=== PATIENT | male | born 1985 | race African-American/Black ===

== ENCOUNTER 2019-03-15 09:49 | Emergency (ER) | payer SELFPAY ==
[~2019-03-15] VITALS: Ht 177.8 cm; Wt 95.0 kg
[2019-03-15] MEDS ORDERED: IBUPROFEN 400 MG TABLET. PO ONE (10:15)
[2019-03-15 10:18] VITALS: BP 142/99
[2019-03-15] MEDS ORDERED: AZIT250T PO (10:41)
[2019-03-15] MEDS ORDERED: HYDR-3164 PO (10:41)
--- NOTE | 2019-03-15 10:41 | PHYS DOC ---
Past Medical History Past Medical History: No Pertinent History Past Surgical History: No Surgical History Alcohol Use: Heavy Drug Use: Marijuana Adult General Chief Complaint Chief Complaint: SORE THROAT HPI HPI Patient is a 33 year old male who presents with complaining of sore throat. Patient complaining of constant sore throat for the last 5 days with white spots in his throat and headache without fever, sick contacts, cough and congestion, nausea and vomiting. Patient states he thinks he had strep throat. Review of Systems Review of Systems Constitutional: Denies fever or chills [] Eyes: Denies change in visual acuity, redness, or eye pain [] HENT: Denies nasal congestion, reports sore throat [] Respiratory: Denies cough or shortness of breath [] Cardiovascular: No additional information not addressed in HPI [] GI: Denies abdominal pain, nausea, vomiting, bloody stools or diarrhea [] : Denies dysuria or hematuria [] Musculoskeletal: Denies back pain or joint pain [] Integument: Denies rash or skin lesions [] Neurologic: Reports headache, denies focal weakness or sensory changes [] Endocrine: Denies polyuria or polydipsia [] All other systems were reviewed and found to be within normal limits, except as documented in this note. Current Medications Current Medications Current Medications Medications (Trade) Dose Ordered Sig/Steve Start Time Stop Time Status Last Admin Dose Admin Ibuprofen (Motrin) 800 mg 1X ONCE 03/15/19 10:15 03/15/19 10:22 DC 03/15/19 10:28 800 MG Allergies Allergies Allergies Coded Allergies Type Severity Reaction Last Updated Verified Penicillins Allergy Unknown 03/15/19 Yes Physical Exam Physical Exam Constitutional: Well developed, well nourished, mild distress, non-toxic appearance. [] HENT: Normocephalic, atraumatic, bilateral external ears normal, oropharynx moist, bilateral tonsillar enlargement with exudates, nose normal. [] Eyes: PERRLA, EOMI, conjunctiva normal, no discharge. [] Neck: Normal range of motion, no tenderness, supple, no stridor, bilateral cervical lymphadenopathy. [] Cardiovascular:Heart rate regular rhythm, no murmur [] Lungs & Thorax: Bilateral breath sounds clear to auscultation [] Skin: Warm, dry, no erythema, no rash. [] Extremities: No tenderness, no cyanosis, no clubbing, ROM intact, no edema. [] Neurologic: Alert and oriented X 3 Psychologic: Affect normal, judgement normal, mood normal. [] Current Patient Data Vital Signs Vital Signs Date Time Temp Pulse Resp B/P (MAP) Pulse Ox O2 Delivery O2 Flow Rate FiO2 03/15/19 10:18 98.6 64 16 142/99 (113) 98 Room Air 98.6 EKG EKG [] Radiology/Procedures Radiology/Procedures [] Course & Med Decision Making Course & Med Decision Making Pertinent Labs reviewed. (See chart for details) Evaluation of patient in ER showed 33-year-old male patient with complaining of sore throat for 5 days. Patient had enlarged tonsils with exudate and cervical lymphadenopathy without fever in ER. Strep test was positive. Patient is allergic to penicillin. Plan discharge patient home to diagnose of a strep pharyngitis and prescription of Zithromax and Naper. Dragon Disclaimer Dragon Disclaimer This electronic medical record was generated, in whole or in part, using a voice recognition dictation system. Departure Departure Impression: Primary Impression: Acute streptococcal pharyngitis Disposition: HOME, SELF-CARE (at 1039) Condition: IMPROVED Referrals: NON,STAFF (PCP) Patient Instructions: Strep Throat, Group A Streptococcus Additional Instructions: Drink plenty of liquids Follow-up with your primary care physician in 3-5 days Return to ER if not getting better Scripts Azithromycin (ZITHROMAX) 250 Mg Tablet 1 PKG PO UD for infection, #1 PKG Prov: KISHORE BAUM MD 03/15/19 Hydrocodone/Apap 5-325 (NORCO 5-325 TABLET) 1 Each Tablet 1 TAB PO PRN Q6HRS PRN for PAIN, #12 TAB 0 Refills Prov: KISHORE BAUM MD 03/15/19 KISHORE BAUM MD Mar 15, 2019 10:41
== END 2019-03-15 10:50 | disposition home or self-care (01) ==
LOC: ER 09:49
DX: J02.0 Streptococcal pharyngitis (principal); B95.5 Unspecified streptococcus as the cause of diseases classified elsewhere; R51 Headache; F10.20 Alcohol dependence, uncomplicated; Y90.9 Presence of alcohol in blood, level not specified; Z88.0 Allergy status to penicillin
CPT/HCPCS: 87880; 99283

== ENCOUNTER 2019-03-20 13:53 | Emergency (ER) | payer SELFPAY ==
[~2019-03-20] VITALS: Ht 177.8 cm; Wt 94.8 kg
[~2019-03-20 13:53] MED LIST: AZIT250T PO; HYDR-3164 PO
--- NOTE | 2019-03-20 14:12 | PHYS DOC ---
Past Medical History Past Medical History: No Pertinent History Past Surgical History: No Surgical History Alcohol Use: Heavy Drug Use: Marijuana Adult General Chief Complaint Chief Complaint: SORE THROAT HPI HPI Patient is a 33 year old male presents to the ED complaining of sore throat �1 week. Patient states that he just finished a Z-Daren because he was diagnosed with strep throat 5 days ago. States he is still having a sore throat. Describes the pain as sharp. Rates the pain as 6 out of 10. Patient is allergic to penicillin. Associated symptoms include subjective fever. Denies cough, chest pain, rash, consider colitis, abdominal pain, nausea/vomiting, dizziness, weakness or neck pain. Review of Systems Review of Systems Constitutional: Complains of subjective fever. Denies chills [] Eyes: Denies change in visual acuity, redness, or eye pain [] HENT: Complains of sore throat. Denies congestion.[] Respiratory: Denies cough or shortness of breath [] Cardiovascular: No additional information not addressed in HPI [] GI: Denies abdominal pain, nausea, vomiting, bloody stools or diarrhea [] : Denies dysuria or hematuria [] Musculoskeletal: Denies back pain or joint pain [] Integument: Denies rash or skin lesions [] Neurologic: Denies headache, focal weakness or sensory changes [] All other systems were reviewed and found to be within normal limits, except as documented in this note. Allergies Allergies Allergies Coded Allergies Type Severity Reaction Last Updated Verified Penicillins Allergy Unknown 03/15/19 Yes Physical Exam Physical Exam Constitutional: Well developed, well nourished, no acute distress, non-toxic appearance. [] HENT: Normocephalic, atraumatic, bilateral external ears normal, moderate phary ngeal erythema. no exudate. uvula midline. oropharynx moist, no oral exudates, nose normal. [] Eyes: PERRLA, EOMI, conjunctiva normal, no discharge. [] Neck: Normal range of motion, no tenderness, supple, no stridor. [] Cardiovascular:Heart rate regular rhythm, no murmur [] Lungs & Thorax: Bilateral breath sounds clear to auscultation [] Abdomen: Bowel sounds normal, soft, no tenderness, no masses, no pulsatile masses. [] Skin: Warm, dry, no erythema, no rash. [] Back: No tenderness, no CVA tenderness. [] Extremities: No tenderness, no cyanosis, no clubbing, ROM intact, no edema. [] Neurologic: Alert and oriented X 3, normal motor function, normal sensory function, no focal deficits noted. [] Psychologic: Affect normal, judgement normal, mood normal. [] Current Patient Data Vital Signs Vital Signs Date Time Temp Pulse Resp B/P (MAP) Pulse Ox O2 Delivery O2 Flow Rate FiO2 03/20/19 14:13 98.5 88 20 159/100 (119) 98 Room Air 98.5 EKG EKG [] Radiology/Procedures Radiology/Procedures [] Course & Med Decision Making Course & Med Decision Making Pertinent Labs and Imaging studies reviewed. (See chart for details) [][]Patient had a negative strep test in the ED. Patient will appearing. Discussed symptomatic treatment and [id number] medications. We'll discharge with short course of prednisone and doxycycline. Discussed follow-up with PCP and signs and symptoms to return to the ED. Patient understands and agrees with plan. Dragon Disclaimer Dragon Disclaimer This electronic medical record was generated, in whole or in part, using a voice recognition dictation system. Departure Departure Impression: Primary Impression: Acute pharyngitis Disposition: HOME, SELF-CARE Condition: IMPROVED Referrals: NO PCP (PCP) LAMONT HOLGUIN MD Patient Instructions: Viral and Bacterial Pharyngitis Scripts Prednisone (PREDNISONE) 50 Mg Tablet 1 TAB PO DAILY for 5 Days, #5 TAB Prov: SUSANNA ALVAREZ 03/20/19 Doxycycline Hyclate (DOXYCYCLINE HYCLATE) 100 Mg Tablet. 1 TAB PO BID, #14 TAB Prov: SUSANNA ALVAREZ 03/20/19 SUSANNA ALVAREZ Mar 20, 2019 14:12
[2019-03-20 14:13] VITALS: BP 159/100
[2019-03-20] MEDS ORDERED: DOXY100T9 PO (14:30)
[2019-03-20] MEDS ORDERED: PRED50TA PO (14:30)
== END 2019-03-20 14:38 | disposition home or self-care (01) ==
LOC: ER 13:53
DX: J02.9 Acute pharyngitis, unspecified (principal); F10.20 Alcohol dependence, uncomplicated; Y90.9 Presence of alcohol in blood, level not specified; Z88.0 Allergy status to penicillin
CPT/HCPCS: 87070; 87880; 99283

== ENCOUNTER 2019-04-01 16:04 | Emergency (ER) | payer SELFPAY ==
[~2019-04-01] VITALS: Ht 177.8 cm; Wt 94.8 kg
[~2019-04-01 16:04] MED LIST changes: +DOXY-96 PO; +PRED50TA PO
[2019-04-01] MEDS ORDERED: LIDOCAINE 2% VISCOUS 15 ML SOLUTION. SWSW ONE (16:45)
[2019-04-01] MEDS ORDERED: CLINDAMYCIN 900MG PREMIX 50 ML IV ONE (16:45)
[2019-04-01] MEDS ORDERED: ACETAMINOPHEN 650 MG/20.3 ML SOLUTION. PO ONE (16:45)
[2019-04-01] MEDS ORDERED: IV NORMAL SALINE 1000ML BAG 1,000 ML IV ONE (16:45)
[2019-04-01] MEDS ORDERED: methylPREDNISolone SOD SUCC PF 125 MG/2 ML VIAL. IV ONE (16:45)
[2019-04-01] MEDS ORDERED: MORPHINE SULFATE 10 MG/ML VIAL. IV ONE ×2 (16:45→20:45)
[2019-04-01] MEDS ORDERED: IOHEXOL 300 MG/ML 100ML VIAL. IV ONE (17:00)
[2019-04-01] MEDS ORDERED: CONTRAST GIVEN. MC PRN (17:00)
[2019-04-01] MEDS: IV NORMAL SALINE 1000ML BAG 1,000 ML IV SCH ×2 (17:13→18:08)
[2019-04-01 17:14] LABS: BASO % 0 % (0-3); EOS # 0.1 x10^3/uL (0.0-0.7); EOS % 1 % (0-3); HEMATOCRIT 41.9 % (39.0-53.0); HEMOGLOBIN 14.3 g/dL (13.0-17.5); LYMPH # 1.2 x10^3/uL (1.0-4.8); LYMPH % 11 % (24-48); MEAN CORPUSCULAR HEMOGLOBIN 32 pg (25-35); MEAN CORPUSCULAR HGB CONC 34 g/dL (31-37); MEAN CORPUSCULAR VOLUME 93 fL (79-100); MONO # 0.9 x10^3/uL (0.0-1.1); MONO % 9 % (0-9); NEUT # 8.4 x10^3/uL (1.8-7.7); NEUT % 79 % (31-73); PLATELET COUNT 303 x10^3/uL (140-400); RED CELL DISTRIBUTION WIDTH 14.6 % (11.5-14.5); WHITE BLOOD COUNT 10.6 x10^3/uL (4.0-11.0)
[2019-04-01 17:19] LABS: CALCIUM 9.8 mg/dL (8.5-10.1); CREATININE 0.9 mg/dL (0.7-1.3); GFR 119.1; POTASSIUM 4.4 mmol/L (3.5-5.1)
[2019-04-01 17:26] LABS: ALBUMIN/GLOBULIN RATIO 0.8 (1.0-1.7); TOTAL PROTEIN 8.8 g/dL (6.4-8.2)
--- NOTE | 2019-04-01 18:20 | RAD ---
CT SOFT TISSUE NECK W/CONTRAST DATE: 04/01/2019 4:30 PM INDICATION: Sore throat for 3 weeks TECHNIQUE: Axial computed tomography of the neck with intravenous contrast according to the standard neck protocol. 70 cc of Omnipaque 300 was administered intravenously. One or more of the following dose reduction techniques were utilized: Automated exposure control (AEC), Adjustment of mA and/or kV according to patient size, Use of iterative reconstruction technique such as ASiR, CT scan done according to ALARA and image gently/image wisely COMPARISON: None. FINDINGS: Enlargement of the adenoids and palatine tonsils, greater on the left. 1.0 x 1.2 cm region of ill-defined low attenuation within the left palatine tonsil. Mucosal thickening involving the oropharynx, hypopharynx, and larynx which is more pronounced on the left. Asymmetric effacement of the left piriform sinus. Mild retropharyngeal effusion without enhancement. Moderate narrowing of the oropharynx. Mild narrowing of the hypopharynx. Enlarged bilateral cervical lymph nodes. The parotid, submandibular, and thyroid glands are normal. The muscles of the neck are normal. Vessels of the neck demonstrate normal course, caliber, and enhancement. The visualized aerodigestive tract is normal. The visualized posterior fossa and brain is unremarkable. The visualized orbits are normal. Bilateral maxillary sinus mucus retention cysts. The cervical spine is normal. The visualized lung apices are clear. IMPRESSION: 1. Tonsillar enlargement with mucosal thickening involving the pharynx and larynx. Ill-defined region of hypoattenuation within the left palatine tonsil measuring up to 1.2 cm, which likely represents phlegmon or developing abscess. Mild retropharyngeal effusion, without enhancement. 2. Bilateral cervical lymphadenopathy, likely reactive. Electronically signed by: Rafael Stovall MD (04/01/2019 6:17 PM) [facility]
--- NOTE | 2019-04-01 20:20 | PHYS DOC ---
Past Medical History Past Medical History: No Pertinent History (ABIODUN HERNANDEZ APRN) Past Surgical History: No Surgical History (ABIODUN HERNANDEZ APRN) Alcohol Use: Heavy Drug Use: Marijuana (ABIODUN HERNANDEZ APRN) Adult General Chief Complaint Chief Complaint: SORE THROAT HPI HPI Patient is a 33 year old male patient with no significant medical history who presents to the ED today complaining of a sore throat that began 3 weeks ago. Patient states he was seen in the ED on March 15, 2019 and started on azithromycin which she completed. He states symptoms did not improve, he states he returned on March 20, 2019 and was given doxycycline, he states symptoms have not improved. He states he continues to have pain when swallowing. Patient denies inability to swallow, denies any difficulty breathing. He states he has subjective fevers. (ABIODUN HERNANDEZ APRN) Review of Systems Review of Systems Constitutional: Denies fever or chills [] Eyes: Denies change in visual acuity, redness, or eye pain [] HENT: Reports sore throat. Denies nasal congestion Respiratory: Denies cough or shortness of breath [] Cardiovascular: No additional information not addressed in HPI [] GI: Denies abdominal pain, nausea, vomiting, bloody stools or diarrhea [] : Denies dysuria or hematuria [] Musculoskeletal: Denies back pain or joint pain [] Integument: Denies rash or skin lesions [] Neurologic: Denies headache, focal weakness or sensory changes [] All other systems were reviewed and found to be within normal limits, except as documented in this note. (ABIODUN HERNANDEZ APRN) Current Medications Current Medications Current Medications Medications (Trade) Dose Ordered Sig/Steve Start Time Stop Time Status Last Admin Dose Admin Acetaminophen (Tylenol) 650 mg 1X ONCE 04/01/19 16:45 04/01/19 16:46 DC 04/01/19 17:14 650 MG Clindamycin Phosphate 50 ml @ 100 mls/hr 1X ONCE 04/01/19 16:45 04/01/19 17:14 DC 04/01/19 17:15 100 MLS/HR Info (CONTRAST GIVEN -- Rx MONITORING) 1 each PRN DAILY PRN 04/01/19 17:00 04/03/19 16:59 Iohexol (Omnipaque 300 Mg/ml) 70 ml 1X ONCE 04/01/19 17:00 10/6/19 17:01 DC 04/01/19 17:00 70 ML Lidocaine HCl (Viscous Lidocaine) 15 ml 1X ONCE 04/01/19 16:45 04/01/19 16:46 DC 04/01/19 17:14 15 ML Methylprednisolone Sodium Succinate (SOLU-Medrol 125MG VIAL) 125 mg 1X ONCE 04/01/19 16:45 04/01/19 16:46 DC 04/01/19 17:14 125 MG Morphine Sulfate (Morphine Sulfate) 5 mg 1X ONCE 04/01/19 20:45 04/01/19 20:46 DC 04/01/19 20:39 5 MG Sodium Chloride 1,000 ml @ 2,190 mls/hr Q28M 04/01/19 16:33 04/01/19 17:33 DC 04/01/19 18:08 2,190 MLS/HR (LAMONT HOLMAN DO) Allergies Allergies Allergies Coded Allergies Type Severity Reaction Last Updated Verified Penicillins Allergy Unknown 03/15/19 Yes (LAMONT HOLMAN DO) Physical Exam Physical Exam Constitutional: Well developed, well nourished, no acute distress, non-toxic appearance. [] HENT: Normocephalic, atraumatic, bilateral external ears normal, oropharynx moist, no oral exudates, nose normal. [] +2 anterior cervical adenopathy worse on the left side. +2 tonsils. Airway is open Eyes: PERRLA, EOMI, conjunctiva normal, no discharge. [] Neck: Normal range of motion, no tenderness, supple, no stridor. [] Cardiovascular:Heart rate regular rhythm, no murmur [] Lungs & Thorax: Bilateral breath sounds clear to auscultation [] Abdomen: Bowel sounds normal, soft, no tenderness, no masses, no pulsatile masses. [] Skin: Warm, dry, no erythema, no rash. [] Back: No tenderness, no CVA tenderness. [] Extremities: No tenderness, no cyanosis, no clubbing, ROM intact, no edema. [] Neurologic: Alert and oriented X 3, normal motor function, normal sensory function, no focal deficits noted. [] Psychologic: Affect normal, judgement normal, mood normal. [] (ABIODUN HERNANDEZ APRN) Current Patient Data Vital Signs Vital Signs Date Time Temp Pulse Resp B/P (MAP) Pulse Ox O2 Delivery O2 Flow Rate FiO2 04/01/19 20:39 15 99 Room Air 04/01/19 20:22 62 144/93 (110) 04/01/19 16:15 99.2 99.2 (HOLMANLAMONT DOUGLAS DO) Lab Values Laboratory Tests Test 04/01/19 17:00 White Blood Count 10.6 x10^3/uL (4.0-11.0) Red Blood Count 4.50 x10^6/uL (4.30-5.70) Hemoglobin 14.3 g/dL (13.0-17.5) Hematocrit 41.9 % (39.0-53.0) Mean Corpuscular Volume 93 fL (79-100) Mean Corpuscular Hemoglobin 32 pg (25-35) Mean Corpuscular Hemoglobin Concent 34 g/dL (31-37) Red Cell Distribution Width 14.6 % (11.5-14.5) H Platelet Count 303 x10^3/uL (140-400) Neutrophils (%) (Auto) 79 % (31-73) H Lymphocytes (%) (Auto) 11 % (24-48) L Monocytes (%) (Auto) 9 % (0-9) Eosinophils (%) (Auto) 1 % (0-3) Basophils (%) (Auto) 0 % (0-3) Neutrophils # (Auto) 8.4 x10^3/uL (1.8-7.7) H Lymphocytes # (Auto) 1.2 x10^3/uL (1.0-4.8) Monocytes # (Auto) 0.9 x10^3/uL (0.0-1.1) Eosinophils # (Auto) 0.1 x10^3/uL (0.0-0.7) Basophils # (Auto) 0.0 x10^3/uL (0.0-0.2) Sodium Level 140 mmol/L (136-145) Potassium Level 4.4 mmol/L (3.5-5.1) Chloride Level 99 mmol/L (98-107) Carbon Dioxide Level 30 mmol/L (21-32) Anion Gap 11 (6-14) Blood Urea Nitrogen 7 mg/dL (8-26) L Creatinine 0.9 mg/dL (0.7-1.3) Estimated GFR (Cockcroft-Gault) 119.1 BUN/Creatinine Ratio 8 (6-20) Glucose Level 84 mg/dL (70-99) Calcium Level 9.8 mg/dL (8.5-10.1) Total Bilirubin 1.0 mg/dL (0.2-1.0) Aspartate Amino Transferase (AST) 26 U/L (15-37) Alanine Aminotransferase (ALT) 15 U/L (16-63) L Alkaline Phosphatase 104 U/L (46-116) Total Protein 8.8 g/dL (6.4-8.2) H Albumin 4.0 g/dL (3.4-5.0) Albumin/Globulin Ratio 0.8 (1.0-1.7) L Laboratory Tests 04/01/19 17:00 Laboratory Tests 04/01/19 17:00 (LAMONT HOLMAN DO) EKG EKG [] (ABIODUN HERNANDEZ APRN) Radiology/Procedures Radiology/Procedures []PROCEDURE: CT SOFT TISSUE NECK W/CONTRAST CT SOFT TISSUE NECK W/CONTRAST DATE: 04/01/2019 4:30 PM INDICATION: Sore throat for 3 weeks TECHNIQUE: Axial computed tomography of the neck with intravenous contrast according to the standard neck protocol. 70 cc of Omnipaque 300 was administered intravenously. One or more of the following dose reduction techniques were utilized: Automated exposure control (AEC), Adjustment of mA and/or kV according to patient size, Use of iterative reconstruction technique such as ASiR, CT scan done according to ALARA and image gently/image wisely COMPARISON: None. FINDINGS: Enlargement of the adenoids and palatine tonsils, greater on the left. 1.0 x 1.2 cm region of ill-defined low attenuation within the left palatine tonsil. Mucosal thickening involving the oropharynx, hypopharynx, and larynx which is more pronounced on the left. Asymmetric effacement of the left piriform sinus. Mild retropharyngeal effusion without enhancement. Moderate narrowing of the oropharynx. Mild narrowing of the hypopharynx. Enlarged bilateral cervical lymph nodes. The parotid, submandibular, and thyroid glands are normal. The muscles of the neck are normal. Vessels of the neck demonstrate normal course, caliber, and enhancement. The visualized aerodigestive tract is normal. The visualized posterior fossa and brain is unremarkable. The visualized orbits are normal. Bilateral maxillary sinus mucus retention cysts. The cervical spine is normal. The visualized lung apices are clear. IMPRESSION: 1. Tonsillar enlargement with mucosal thickening involving the pharynx and larynx. Ill-defined region of hypoattenuation within the left palatine tonsil measuring up to 1.2 cm, which likely represents phlegmon or developing abscess. Mild retropharyngeal effusion, without enhancement. 2. Bilateral cervical lymphadenopathy, likely reactive. Electronically signed by: Willie Stovall MD (04/01/2019 6:17 PM) [id number] DICTATED and SIGNED BY: WILLIE STOVALL MD DATE: 04/01/191816 (ABIODUN HERNANDEZ APRN) Course & Med Decision Making Course & Med Decision Making Pertinent Labs and Imaging studies reviewed. (See chart for details) This is a 33-year-old male patient who presents to the ED today with a sore throat for 3 weeks. Patient was seen in the ED on March 15, 2019 for the same complaint and started on azithromycin, return back in the ED on March 20, 2019 and was switched to doxycycline, symptoms are not improved. Arrives in the ED with a temperature of 99.2, heart rate 89, respiration 20 room air, blood pressure 139/92, O2 sats 100% on room air. + Rapid strep Patient was given Solu-Medrol and clindamycin in the ED CBC with a normal WBC, CMP would not acute findings. Neck soft tissue CT noted for tonsillitis with concern for early tonsillar abscess. Spoke to , they stated ENT recommended IV antibiotics otherwise this is not a drainable abscess. Dr. Martinez accepted patient for admission at . EMS to transport to (ABIODUN HERNANDEZ APRN) Dragon Disclaimer Dragon Disclaimer This electronic medical record was generated, in whole or in part, using a voice recognition dictation system. (ABIODUN HERNANDEZ APRN) Departure Departure Impression: Primary Impression: Tonsillar abscess Additional Impression: Acute tonsillitis Disposition: 05 TRANSFER OTHER Condition: STABLE Referrals: NO PCP (PCP) Attending Signature Attending Signature I have reviewed the PA/ENTOMOLOGY PROFESSOR's note and plan of care. I was available for c onsultation as needed during the patient's visit in the emergency department. I agree with the clinical impression, plan, and disposition. (LAMONT HOLMAN DO) Problem Qualifiers Additional Impression: Acute tonsillitis Pharyngitis/tonsillitis etiology: unspecified etiology Qualified Codes: J03.90 - Acute tonsillitis, unspecified ABIODUN HERNANDEZ APRN Apr 01, 2019 20:19 LAMONT HOLMAN DO Apr 01, 2019 21:45
[2019-04-01 23:15] VITALS: BP 108/75
== END 2019-04-01 23:32 | disposition short-term general hospital (02) ==
LOC: ER 16:04
DX: J03.90 Acute tonsillitis, unspecified (principal); F10.20 Alcohol dependence, uncomplicated; Z88.0 Allergy status to penicillin; Y90.9 Presence of alcohol in blood, level not specified
CPT/HCPCS: 36415; 70491; 80053; 85025; 87040; 87880; 96365; 96375; 96376; 99285; J2270; J2930; J3490; J7030; Q9967

== ENCOUNTER 2020-10-15 20:16 | Emergency (ER) | payer SELFPAY ==
[~2020-10-15] VITALS: Ht 177.8 cm; Wt 109.0 kg
--- NOTE | 2020-10-15 21:21 | PHYS DOC ---
Past Medical History Past Medical History: No Pertinent History Past Surgical History: No Surgical History Smoking Status: Current Every Day Smoker Alcohol Use: Heavy Drug Use: Marijuana General Adult EDM: Chief Complaint: CHEST PAIN HPI: HPI: Patient is a 35 year old male who presents to the emergency department due to chest pain. Patient states that he was at home smoking tobacco when he noticed a 2 out of 10 chest pain that is sharp in nature, constant and radiates to his back. He states that he has experienced this previously and it has been gradually getting worse over the past 4 months. Patient states that he has shortness of breath, cough, wheezing, lightheadedness, and dizziness. He denies any nausea or vomiting. Onset of symptoms 1830hrs. Chest discomfort with deep breaths. Patient states he did give plasma today. Review of Systems: Review of Systems: Review of systems: Constitutional symptoms- No fever, no chills. Eyes- No Discharge, No Visual Loss Respiratory symptoms-positive shortness of breath, wheezing, Dyspnea on Exertion Cardiovascular Systems; positive chest pain, No Palpitations, No syncope Gastrointestinal symptoms: NO abdominal pain, no nausea, no vomiting or diarrhea. Genitourinary symptoms: No dysuria. Musculoskeletal symptoms: Positive back pain No extremity pain. NEUROLOGICAL Symptoms: No headache, no generalized weakness; No focal Weakness Heart Score: C/O Chest Pain: Yes HEART Score for Chest Pain: HEART Score for Chest Pain Response (Comments) Value History Slighlty/Non-Suspicious 0 ECG Normal 0 Age < 45 0 Risk Factors No Risk Factors 0 Troponin < Normal Limit 0 Total 0 Risk Factors: Risk Factors: DM, Current or recent (<one month) smoker, HTN, HLP, family history of CAD, obesity. Risk Scores: Score 0 - 3: 2.5% MACE over next 6 weeks - Discharge Home Score 4 - 6: 20.3% MACE over next 6 weeks - Admit for Clinical Observation Score 7 - 10: 72.7% MACE over next 6 weeks - Early Invasive Strategies Allergies: Allergies: Allergies Coded Allergies Type Severity Reaction Last Updated Verified Penicillins Allergy Unknown 03/15/19 Yes Physical Exam: PE: General: alert, no acute distress. Skin: warm, dry and intact. Head:: Normocephalic, atraumatic. Neck: Trachea midline. Eyes: EOMI, Normal conjunctiva, No drainage CARDIOVASCULAR: Regular rate and rhythm, radial pulses intact RESPIRATORY: No respiratory distress, CTAB Back: Full range of motion. MUSCULOSKELETAL: Full range of motion of bilateral upper and lower extremities. GASTROINTESTINAL: Abdomen soft without rebound or guarding. NEUROLOGICAL: Alert and noted to person, place and time. No neurological deficits observed Psychiatric: Cooperative. Normal judgment EKG: EKG: [] EKG performed at 2021 heart rate [address] elevation no ST depression no acute FL t wave inversion 2,3,avf, v4-v6 Radiology/Procedures: Radiology/Procedures: [] Impression: FINDINGS: The cardiomediastinal silhouette and pulmonary vessels are within normal limits. The lung and pleural spaces are clear. IMPRESSION: No acute cardiopulmonary process. Electronically signed by: Jarred Fuentes MD (10/15/2020 9:37 PM) [facility] Course & Med Decision Making: Course & Med Decision Making Pertinent Labs and Imaging studies reviewed. (See chart for details) [] Patient was evaluated for chief complaint. Work-up consisted of laboratory analysis radiologic imaging and EKG. Results reviewed and discussed with patient. Chest x-ray no acute abnormalities EKG without acute ischemia there was some T wave inversions noted. Patient did have mildly elevated liver enzymes in the setting of drinking a pint of vodka daily. Treatment included IV fluids patient also received a shot of Toradol. Paul Disclaimer: Paul Disclaimer: This electronic medical record was generated, in whole or in part, using a voice recognition dictation system. Departure Departure Impression: Primary Impression: Chest pain Additional Impression: Dizzy Disposition: 01 HOME / SELF CARE / HOMELESS Condition: STABLE Referrals: NO PCP (PCP) Patient Instructions: Chest Pain (Nonspecific), Dizziness ANTONIO ARAUJO DO Oct 15, 2020 21:21
[2020-10-15 21:38] LABS: BASO % 1 % (0-3); EOS % 1 % (0-3); HEMATOCRIT 41.2 % (39.0-53.0); LYMPH # 1.7 x10^3/uL (1.0-4.8); LYMPH % 48 % (24-48); MEAN CORPUSCULAR HEMOGLOBIN 33 pg (25-35); MEAN CORPUSCULAR HGB CONC 34 g/dL (31-37); MEAN CORPUSCULAR VOLUME 98 fL (79-100); MONO # 0.4 x10^3/uL (0.0-1.1); MONO % 11 % (0-9); NEUT # 1.3 x10^3/uL (1.8-7.7); NEUT % 39 % (31-73); PLATELET COUNT 192 x10^3/uL (140-400); RED CELL DISTRIBUTION WIDTH 14.1 % (11.5-14.5); WHITE BLOOD COUNT 3.5 x10^3/uL (4.0-11.0)
--- NOTE | 2020-10-15 21:40 | RAD ---
Exam: Chest one view INDICATION: Chest pain TECHNIQUE: Frontal view of the chest Comparisons: None FINDINGS: The cardiomediastinal silhouette and pulmonary vessels are within normal limits. The lung and pleural spaces are clear. IMPRESSION: No acute cardiopulmonary process. Electronically signed by: Jarred Fuentes MD (10/15/2020 9:37 PM) [facility]
[2020-10-15 21:53] LABS: CALCIUM 8.4 mg/dL (8.5-10.1); CREATININE 1.2 mg/dL (0.7-1.3); GFR 84.4; POTASSIUM 3.8 mmol/L (3.5-5.1)
[2020-10-15 21:58] LABS: ALBUMIN 3.7 g/dL (3.4-5.0); ALBUMIN/GLOBULIN RATIO 1.4 (1.0-1.7); TOTAL BILIRUBIN 0.7 mg/dL (0.2-1.0); TOTAL PROTEIN 6.3 g/dL (6.4-8.2)
[2020-10-15] MEDS ORDERED: IV NORMAL SALINE 1000ML BAG 1,000 ML IV ONE (22:00)
[2020-10-15] MEDS ORDERED: KETOROLAC 30 MG/ML VIAL. IVP ONE (22:00)
[2020-10-15 23:03] VITALS: BP 129/76
--- NOTE | 2020-10-15 23:46 | EKG ---
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
== END 2020-10-15 23:03 | disposition home or self-care (01) ==
LOC: ER 20:16
DX: R07.89 Other chest pain (principal); R42 Dizziness and giddiness; R06.02 Shortness of breath; Z72.0 Tobacco use; F10.20 Alcohol dependence, uncomplicated; Y90.9 Presence of alcohol in blood, level not specified; Z88.0 Allergy status to penicillin
CPT/HCPCS: 36415; 71045; 80053; 84484; 85025; 93005; 96361; 96374; 99285; J1885; J7030